=== PATIENT | female | born 1940 | race African-American/Black ===

== ENCOUNTER 2020-03-10 08:11 | Outpatient (CLI) | payer OTHER | END 2020-03-10 08:14 | disposition home or self-care (01) | LOC: RX STUDY 08:11 | PROVIDERS: ATTEND Internal Medicine Gastroenterology | DX: R13.0 Aphagia (principal) ==

== ENCOUNTER 2020-08-20 09:10 | Outpatient (CLI) | payer OTHER | END 2020-08-20 09:18 | disposition home or self-care (01) | LOC: SONOGRAMA 09:10 → MAMO-SONO 09:15 → SONOGRAMA 09:18 | PROVIDERS: ATTEND Internal Medicine Rheumatology | DX: S49.81XA Other specified injuries of right shoulder and upper arm, initial encounter (principal); S46.002A Unspecified injury of muscle(s) and tendon(s) of the rotator cuff of left shoulder, initial encounter ==

== ENCOUNTER 2020-10-21 08:45 | Outpatient (CLI) | payer OTHER | END 2020-10-21 08:48 | disposition home or self-care (01) | LOC: NUCLEAR 08:45 | PROVIDERS: ATTEND Internal Medicine | DX: I73.9 Peripheral vascular disease, unspecified (principal) ==

== ENCOUNTER 2020-10-21 09:41 | Outpatient (CLI) | payer OTHER | END 2020-10-21 09:50 | disposition home or self-care (01) | LOC: MAMO-SONO 09:41 | PROVIDERS: ATTEND Internal Medicine | DX: Z12.31 Encounter for screening mammogram for malignant neoplasm of breast (principal); Z87.898 Personal history of other specified conditions; N64.89 Other specified disorders of breast; Z12.39 Encounter for other screening for malignant neoplasm of breast ==